=== PATIENT | male | born 1990 | race American Indian/Alaskan Native ===

== ENCOUNTER 2018-05-05 11:23 | Emergency (ER) | payer SELFPAY ==
[2018-05-05 11:28] VITALS: BP 135/79
[2018-05-05] MEDS ORDERED: MOTRIN PO ONE (11:53)
--- NOTE | 2018-05-05 11:53 | Emergency Department Report ---
ED ENT HPI - General Chief complaint: Dental/Oral Stated complaint: TOOTH ACHE Time Seen by Provider: 05/05/18 11:52 Source: patient Mode of arrival: Ambulatory Limitations: No Limitations - History of Present Illness Initial comments: This is a 28-year-old male reports right lower back tooth pain 5 days. He does not have access to dentists. Pain is 7 out of 10 and aching. Worse with eating in and talking. No alleviating factors and is here to be evaluated. He said he took tylenol for pain with no relief. MD complaint: tooth pain Onset/Timin -: days(s) Location: throat, tooth # (31 and 32) 1 - Tooth #31 and 32 Severity: severe Severity scale (0 -10): 7 Quality: aching Consistency: constant Improves with: none Worsens with: eating, other (talk) Context- Dental: history of dental caries, poor dental care Associated Symptoms: toothache. denies: fever, cough, gum swelling, pain with swallowing, sore throat, tinnitus, hearing loss, discharge from ear, rhinorrhea - Related Data Previous Rx's Medication Instructions Recorded Last Taken Type Ibuprofen [Motrin] 800 mg PO Q8HR PRN #15 tablet 05/05/18 Unknown Rx Penicillin V Potassium 500 mg PO Q8H 10 Days #30 tablet 05/05/18 Unknown Rx Allergies Allergy/AdvReac Type Severity Reaction Status Date / Time No Known Allergies Allergy Unverified 05/05/18 11:25 ED Dental HPI - General Chief complaint: Dental/Oral Stated complaint: TOOTH ACHE Time Seen by Provider: 05/05/18 11:52 Source: patient Mode of arrival: Ambulatory Limitations: No Limitations - Related Data Previous Rx's Medication Instructions Recorded Last Taken Type Ibuprofen [Motrin] 800 mg PO Q8HR PRN #15 tablet 05/05/18 Unknown Rx Penicillin V Potassium 500 mg PO Q8H 10 Days #30 tablet 05/05/18 Unknown Rx Allergies Allergy/AdvReac Type Severity Reaction Status Date / Time No Known Allergies Allergy Unverified 05/05/18 11:25 ED Review of Systems ROS: Stated complaint: TOOTH ACHE Other details as noted in HPI Constitutional: denies: chills, fever Eyes: denies: eye pain, eye discharge, vision change ENT: dental pain. denies: ear pain, throat pain, congestion Respiratory: denies: cough, shortness of breath, wheezing Cardiovascular: denies: chest pain, palpitations Gastrointestinal: diarrhea. denies: abdominal pain, nausea, vomiting Musculoskeletal: denies: back pain, joint swelling, arthralgia Skin: denies: rash, lesions Neurological: denies: headache ED Past Medical Hx - Past Medical History Previous Medical History?: No - Surgical History Past Surgical History?: No - Family History Family history: diabetes, hypertension - Social History Smoking Status: Current Every Day Smoker Substance Use Type: Alcohol - Medications Home Medications: Home Medications Medication Instructions Recorded Confirmed Last Taken Type Ibuprofen [Motrin] 800 mg PO Q8HR PRN #15 tablet 05/05/18 Unknown Rx Penicillin V Potassium 500 mg PO Q8H 10 Days #30 tablet 05/05/18 Unknown Rx ED Physical Exam - General Limitations: No Limitations General appearance: alert, in no apparent distress - Head Head exam: Present: atraumatic, normocephalic, normal inspection - Eye Eye exam: Present: normal appearance, PERRL, EOMI Pupils: Present: normal accommodation - ENT ENT exam: Present: normal orophraynx, mucous membranes moist, TM's normal bilaterally, normal external ear exam - Expanded ENT Exam Expanded Mouth exam: Present: normal external inspection Teeth exam: Present: dental caries, dental tenderness # (#31 and #32), gingival enlargement Throat exam: Positive: normal inspection - Neck Neck exam: Present: normal inspection, full ROM. Absent: tenderness, lymphadenopathy - Respiratory Respiratory exam: Present: normal lung sounds bilaterally. Absent: respiratory distress - Cardiovascular Cardiovascular Exam: Present: regular rate, normal rhythm, normal heart sounds. Absent: systolic murmur, diastolic murmur - Extremities Exam Extremities exam: Present: normal inspection, full ROM, normal capillary refill , other (no clubbing, cyanosis or edema. +2 pulses in all extremities). Absent : tenderness, pedal edema, joint swelling, calf tenderness - Neurological Exam Neurological exam: Present: alert, oriented X3, normal gait - Psychiatric Psychiatric exam: Present: normal affect, normal mood - Skin Skin exam: Present: warm, dry, intact, normal color. Absent: rash ED Course Vital Signs 05/05/18 05/05/18 11:26 11:57 Temperature 98.7 F Pulse Rate 73 Respiratory 18 18 Rate Blood Pressure 135/79 O2 Sat by Pulse 99 Oximetry - Reevaluation(s) Reevaluation #1: 05/05/18 13:08 She given Motrin 8 mg by mouth emergency room with positive relief of pain ED Medical Decision Making - Medical Decision Making ED course 28-year-old male presents to emergency room with right lower toothache this on for 2 days. He took Tylenol without any relief. Patient is here to be evaluated. He has no access to dentists. Patient examined by myself and found to have gingivitis and localized tenderness around tooth #31 and 32, toothache and dental caries. Oral airways patent and uvula is midline. No signs of HOME CARE SCHEDULER. Patient given pain medication in emergency room and he feels better. I discussed diagnosis and treatment plan with her and she voiced understanding. A/P 1: Gingivitis-discharged home on penicillin and she has an appointment with dentist on 04/27/2018. 2: Toothache-tooth #31 and 32 with pain. Better with Motrin .He was given Motrin 800 mg . Be discharged home in Motrin 3: Dental caries-referral to dentist Patient education medication, flossing, use and mild wash twice daily, tooth cleaning twice yearly to prevent gum disease. He was educated and diagnosis and effects of gingivitis disease on her heart and that this could lead to infection in blood and cause severe illness. He voiced understanding. Patient discharged home in stable condition with prescription for Motrin, and penicillin .his vital signs are stable he is afebrile. Pain is controlled and she says he feels better. Discharged home to follow up with her dentist in 2-3 days. I discussed with him that he needs to keep Appointment Tomorrow to Follow up with Dentist and He Voiced Understanding. - Differential Diagnosis HOME CARE SCHEDULER, tonsillitis, sinusitis, tooth abscess, toothache, gingivitis Critical care attestation.: If time is entered above; I have spent that time in minutes in the direct care of this critically ill patient, excluding procedure time. ED Disposition Clinical Impression: Gingivitis, Tooth ache, Dental caries Disposition: -01 TO HOME OR SELFCARE Is pt being admited?: No Does the pt Need Aspirin: No Condition: Stable Instructions: Toothache (ED), Dental Caries (ED), Gingivitis (ED) Additional Instructions: Please follow up with dentist as discussed. See alternative dentist and discharge instruction paperwork if needed. Take Motrin for mild to moderate pain and please take this medication with food. Take penicillin V as prescribed. Please floss twice daily Prescriptions: Ibuprofen [Motrin] 800 mg PO Q8HR PRN #15 tablet PRN Reason: toothache Penicillin V Potassium 500 mg PO Q8H 10 Days #30 tablet Referrals: PRIMARY CARE, [Primary Care Provider] - 2-3 Days [facility] [Outside] - 2-3 Days [facility] [Outside] - 2-3 Days Forms: Work/School Release Form(ED)
== END 2018-05-05 13:21 | disposition home or self-care (01) ==
LOC: ED 11:23
DX: K02.9 Dental caries, unspecified (principal); K05.00 Acute gingivitis, plaque induced; E11.9 Type 2 diabetes mellitus without complications; I10 Essential (primary) hypertension; F17.200 Nicotine dependence, unspecified, uncomplicated
CPT/HCPCS: 99282